=== PATIENT | female | born 1990 | race Two or more races ===

== ENCOUNTER 2017-05-21 18:38 | Emergency (ER) | payer OTHER, MEDICAID ==
[~2017-05-21] VITALS: Ht 160 cm; Wt 54.5 kg
== END 2017-05-21 20:19 | disposition home or self-care (01) ==
LOC: CFTX 18:38 → CED 18:38 → CFTX 20:06
DX: L25.9 Unspecified contact dermatitis, unspecified cause (principal)
CPT/HCPCS: 99282